=== PATIENT | male | born 1970 | race Caucasian/White ===

== ENCOUNTER 2020-06-27 12:20 | Emergency (ER) | payer BC ==
[2020-06-27 14:25] LABS: #Eosinphils 0.1 10x3/uL (0.0-0.5); #Monocytes 0.4 10x3/uL (0.0-1.1); #Neutrophils 6.3 10x3/uL (1.5-8.4); %Basophils 0.5 % (0.0-2.0); %Eosinophils 1.3 % (0.0-6.0); %Lymphocytes 20.6 % (18.0-47.0); %Monocytes 4.9 % (0.0-10.0); %Neutrophils 72.5 % (40.0-75.0); Mean Corpuscular HGB CONC 33.2 g/dL (32.0-36.0); Mean Corpuscular Hemoglobin 29.9 pg (27.0-33.0); Mean Corpuscular Volume 90.2 fl (81.2-95.1); Mean Platelet Volume 9.1 fl (7.4-10.4); Platelet Count 301 10x3/uL (150-450); RBC Distribution Width 13.2 % (11.5-14.5); Red Blood Cell (RBC) Count 4.68 10x6/uL (4.32-5.72); White Blood Cell (WBC) Count 8.7 10x3/uL (3.5-10.5)
[2020-06-27 14:43] LABS: ALT (SGPT) 20 U/L (8-55); AST (SGOT) 19 U/L (5-34); Albumin 4.4 g/dL (3.5-5.0); Alkaline Phosphatase 70 U/L (40-110); Anion Gap 11 mmol/L (10-20); BUN (Urea Nitrogen) 12 mg/dL (8.4-25.7); Bilirubin, Total 0.5 mg/dL (0.2-1.2); Calc. Creatinine Clearance 0 mL/min (70-130); Calcium 9.3 mg/dL (7.8-10.44); Carbon Dioxide 29 mmol/L (22-29); Chloride 103 mmol/L (98-107); Globulin 2.6 g/dL (2.4-3.5); Glucose 115 mg/dL (70-105); Potassium 3.9 mmol/L (3.5-5.1); Sodium 139 mmol/L (136-145)
[2020-06-27] MEDS ORDERED: Dexamethasone 10 MG/ML VIAL ONE (17:45)
== END 2020-06-27 19:39 | disposition short-term general hospital (02) ==
LOC: CSHERS 12:20
DX: D49.6 Neoplasm of unspecified behavior of brain (principal); F17.210 Nicotine dependence, cigarettes, uncomplicated
CPT/HCPCS: 70553; 71045; 72146; 80053; 84484; 85025; 93005; 96374; J1100

== ENCOUNTER 2020-07-22 08:19 | Outpatient (CLI) | payer BC | END 2020-07-22 08:20 | disposition home or self-care (01) | LOC: CSHNM 08:19 | PROVIDERS: ATTEND Internal Medicine Hematology & Oncology | DX: C49.9 Malignant neoplasm of connective and soft tissue, unspecified (principal); D48.1 Neoplasm of uncertain behavior of connective and other soft tissue | CPT/HCPCS: 71260; 74177; 78306; A9503 ==